=== PATIENT | female | born 2000 | race Caucasian/White ===

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

== ENCOUNTER → 2020-01-20 | Outpatient (CLI) | payer MEDICAID, SELFPAY ==
--- NOTE | 2020-01-20 | CON_PTH ---
PATIENT: DENIA SPARKS LOC: [facility] U#:[id number] AGE/SX: 19/F ROOM: RE01/20/[address]: Dr. Larry Gotti MD : 2000 BED: DIS: 01/20/2020 SPEC #: [id number] RECD: 01/20/20 15:10 STATUS: SWEETIE LINDA #: [id number] NEGRO: 01/20/20 00:[address]: Larry Gotti DEPT: SURGICAL PATHOLOGY RECD BY: Carine Cantu ENTERED: 01/21/20 08:28 SP TYPE: Conjunctiv OTHR DR: Dr. Jenelle Ruffin MD Tissues: Conjunctiva, NOS Procedures: Surgery Specimen Level III HEADER OPERATION: Removal of pyogenic granuloma of conjunctiva - OD PRE-OP DIAGNOSIS: Pyogenic granuloma of conjunctiva - OD TISSUE SUBMITTED: Pyogenic granuloma of conjunctiva - OD x2 MICROSCOPIC DIAGNOSIS Right eye lesion, biopsy: Marked chronic inflammation and mild acute inflammation. See comment. SJ:belkis 01/22/20 COMMENT Clinical correlation and appropriate follow up are necessary. Case has been reviewed in consultation with Dr. Gregory who concurs with the above diagnosis. IDC:AM MICROSCOPIC DESCRIPTION Slides are reviewed. GROSS DESCRIPTION Received in fixative is one container labeled with the patient's name and designated right eye lesion. The specimen consists of two irregular fragments of light lopez soft tissue that in aggregate measure 0.2 x 0.2 x 0.1 cm. The specimen is totally submitted in one cassette. / AM:belkis 01/21/20 TC:3 CPT: 38666
== END | disposition home or self-care (01) ==
LOC: LABSPEC 15:33
PROVIDERS: PCP Pediatrics; Visit Provider Ophthalmology
DX: L98.0 Pyogenic granuloma (principal)
CPT/HCPCS: 88304

== ENCOUNTER 2020-06-03 19:26 | Emergency (ER) | payer MEDICAID, SELFPAY ==
[2020-06-03 19:26] VITALS: BP 147/81; PULSE 86; RESP 16; TEMP 36.4; O2SAT 100; BMI 39.9
--- NOTE | 2020-06-03 20:40 | RAD_ITS ---
STUDY: X-RAY CHEST REASON FOR EXAM: Female, 20 years old. Fever TECHNIQUE: Single AP portable view of the chest. COMPARISON: None. FINDINGS: The lungs are clear and expanded. There is no demonstrated pleural abnormality. Normal size heart. Normal mediastinum and julio cesar. Normal visualized pulmonary arteries. Normal visualized aortic arch and descending thoracic aorta. Normal visualized thoracic spine. Normal visualized ribs, clavicles, and shoulders. There is no demonstrated abnormality of the visualized soft tissue structures of the upper abdomen. RAD/Chest 1 View (Portable) IMPRESSION: Normal x-ray examination of the chest. Electronically Signed: Catrachito Vera DO at 21:28 EDT Tel [phone], Service support ,
[2020-06-03 20:47] LABS: Absolute Lymphocyte Count 2.51 X10^3/uL (0.83-4.51); Absolute Neutrophil Count 7.9 X10^3/uL (2.0-7.7); Basophil# 0.06 X10^3/uL; Basophil% 0.5 % (0-1); Eosinophil# 0.75 X10^3/uL; Eosinophils% 6.2 % (0-5); Hematocrit 42.7 % (37-47); Hemoglobin 14.1 g/dL (12.0-15.0); Lymphocyte # 2.51 X10^3/ul (0.83-4.51); Lymphocyte % 20.7 % (19-41); Mean Corpuscular Hgb 29.8 pg (27.0-32.0); Mean Corpuscular Volume 90.3 fL (81-99); Mean Platelet Vol. 10.6 fl (6.2-12.0); Monocyte# 0.78 X10^3/uL; Monocyte% 6.4 % (0-10); NRBC Flagged by Analyzer 0 % (0-5); Neutrophil # 7.93 X10^3/uL (2.7-7.7); Neutrophil % 65.5 % (47-70); Platelet Count 419 K/mm3 (150-450); RBC Distribution Width CV 15.4 % (11.6-14.6); RBC Distribution Width SD 50.7 fl (35.1-43.9); Red Blood Count 4.73 M/mm3 (4.2-5.4); White Blood Count 12.1 K/mm3 (4.4-11.0)
[2020-06-03 20:50] LABS: Bacteria 0 SEEN /hpf (None Seen); Mucous, Urine 0 SEEN /hpf (<or=2+); Red Blood Cells-Urine 0 SEEN /hpf (0-5); White Blood Cells 0 SEEN /hpf (0-5)
[2020-06-03 20:51] LABS: Color, Urine Yellow (Yellow); Glucose, Dipstick Normal (Normal); Ketone-Dipstick Negative (Negative); Leukocyte Esterase-Dipstick Negative /ul (Negative); Nitrite-Dipstick Negative (Negative); Occult Blood-Urine Negative /ul (Negative); Protein-Dipstick Negative (Negative); Urine Bilirubin Dipstick Negative (Negative); Urine Clarity Clear (Clear); Urine Urobilinogen Normal (Normal)
[2020-06-03] MEDS: 0.9% Normal Saline 1,000 ML 1000 ML IV (20:54)
[2020-06-03] MEDS: Ondansetron 4 MG/2 ML Vial IV (20:54)
[2020-06-03 20:56] LABS: Internal QC Validated? YES +Cl - CLEAR BKGD; Pregnancy, Serum, hCG Quali. NEGATIVE Negative
[2020-06-03 21:01] LABS: Squamous Epithelial Cells - UA 0-5 SEEN /hpf (5-10)
[2020-06-03 21:05] LABS: AST(SGOT) 9 U/L (15-37); Alanine Aminotransfer ALT/SGPT 22 U/L (13-56); Albumin, Serum 3.7 g/dL (3.2-5.0); Alkaline Phosphatase 55 U/L (45-117); Anion Gap 4 (5-15); BUN 10 mg/dL (7-18); BUN/Creat Ratio 15.2 RATIO (10-20); Calcium,Total 8.9 mg/dL (8.5-10.1); Chloride 109 mmol/L (98-107); Creatinine, Serum 0.66 mg/dL (0.55-1.02); EST Glomerular Filtration Rate 122 mL/min (>60); Est Glom Filt Rate - Afr Amer 147 mL/min (>60); Estimated Creatinine Clearance 122.35 ml/min; Globulin 3.6 g/dL (2.2-4.2); Glucose 103 mg/dL (74-106); Lipase 86 U/L (73-393); Potassium 4.2 mmol/L (3.5-5.1); Protein, Total 7.3 g/dL (6.4-8.2); Sodium Level 139 mmol/L (136-145)
--- NOTE | 2020-06-03 21:52 | ED.VISSUMM ---
- ER Visit Summary Date of Service: 06/03/20 Chief Complaint: Nausea, vomiting, headache History of Present Illness: The patient is a 20 F who presents with nausea, vomiting, and headache for the past 3 days. Patient states the pain is throbbing. Patient states it is over the left frontal area. Patient states it has been constant. Patient admits to subjective chills but denies any fevers. Patient admits to some rhinorrhea. Patient also admits to some diarrhea. Patient denies any melena or hematochezia. Patient denies any hematemesis or coffee-ground emesis. Patient denies any visual changes. Patient denies any loss of taste or smell. Patient is concerned that she has COVID-19. Physical Examination: Vital signs are stable. Patient is afebrile. Patient is in no acute distress. Oral mucosa is pink and moist. Neck is supple. Trachea is midline. There is no JVD noted. Heart was regular rate and rhythm. Lungs are clear and equal bilaterally. Abdomen is soft. Bowel sounds are normal. There is no tenderness. There is no rebound or guarding noted. Skin is warm dry. Cranial nerves II through XII are intact. There are no focal motor or sensory deficits noted. Extremities are intact. There is no calf tenderness or edema. Test Results: CBC shows a slight leukocytosis of 12.1. Comprehensive metabolic profile was essentially within normal limits. Urinalysis does not show any evidence of urinary tract infection. Serum hCG was negative. COVID-19 rapid antigen was negative. Portable 1 view chest x-ray was obtained. On my interpretation, lung clark are clear. There is normal cardiac silhouette. Bony thorax is normal. There is no acute process noted. Radiologist also interpreted the x-ray and agrees. Emergency Department Course and Treatment: Patient was given IV fluids and Zofran. Patient was feeling better on reevaluation. Patient was instructed to drink plenty of fluids. Patient was instructed to take Tylenol or ibuprofen as needed for any pain or fevers. Patient was instructed to follow-up with her primary care physician in 5 to 7 days. Patient understood and was agreeable with the plan. All questions were answered. Disposition: Discharge home Impression: Viral illness This note was generated with [employer] dictation software. It may contain incorrect words, spelling, and punctuation that were not noted in review of the chart prior to signing ED Disposition - Plan for ED Patient: Disposition: Home or Assisted Living Diagnosis: Viral illness Instructions: ED Viral Syndrome (Adult) Referrals: Sarah Horta DO [Primary Care Provider] - 3-5 Days
== END 2020-06-03 22:17 | disposition home or self-care (01) ==
PROVIDERS: Emergency Provider Emergency Medicine; PCP Pediatrics
DX: B34.9 Viral infection, unspecified (principal); Z20.822 Contact with and (suspected) exposure to COVID-19; R11.2 Nausea with vomiting, unspecified; R19.7 Diarrhea, unspecified; R51.9 Headache, unspecified; J34.89 Other specified disorders of nose and nasal sinuses; F90.9 Attention-deficit hyperactivity disorder, unspecified type; Z72.0 Tobacco use; Z79.899 Other long term (current) drug therapy
CPT/HCPCS: 71045; 80053; 81001; 83690; 84703; 85025; 87426; 96361; 96374; 99283; J7030; J2405

== ENCOUNTER 2020-06-23 20:05 | Emergency (ER) | payer MEDICAID, SELFPAY ==
[2020-06-23 20:06] VITALS: BP 152/78; PULSE 78; RESP 18; TEMP 35.9; O2SAT 98; BMI 43.0
--- NOTE | 2020-06-23 20:48 | RAD_ITS ---
HISTORY: Cough EXAM: XR Chest 1 View: COMPARISON: June 03, 2020 FINDINGS: # of images incl. paperwork: 1 Lungs are clear. Heart is not enlarged. No acute osseous pathology perceived. Pulmonary vascularity is distinct. No effusions. RAD/Chest 1 View (Portable) IMPRESSION: Normal. at 2108 Reported and signed by: Wan Ross MD Electronically Signed: Wan Ross MD at 21:07 EDT Tel , Service support ,
[2020-06-23 21:08] LABS: Absolute Lymphocyte Count 3.27 X10^3/uL (0.83-4.51); Absolute Neutrophil Count 8.7 X10^3/uL (2.0-7.7); Basophil# 0.08 X10^3/uL; Basophil% 0.6 % (0-1); Eosinophil# 0.92 X10^3/uL; Eosinophils% 6.5 % (0-5); Hematocrit 40.6 % (37-47); Hemoglobin 13.2 g/dL (12.0-15.0); Lymphocyte # 3.27 X10^3/ul (0.83-4.51); Lymphocyte % 23.1 % (19-41); Mean Corp Hgb Conc 32.5 g/dL (32-36); Mean Corpuscular Hgb 28.5 pg (27.0-32.0); Mean Corpuscular Volume 87.7 fL (81-99); Mean Platelet Vol. 10.1 fl (6.2-12.0); Monocyte# 1.12 X10^3/uL; Monocyte% 7.9 % (0-10); NRBC Flagged by Analyzer 0 % (0-5); Neutrophil % 61.5 % (47-70); Platelet Count 329 K/mm3 (150-450); RBC Distribution Width CV 15.3 % (11.6-14.6); RBC Distribution Width SD 48.5 fl (35.1-43.9); Red Blood Count 4.63 M/mm3 (4.2-5.4); White Blood Count 14.2 K/mm3 (4.4-11.0)
[2020-06-23 21:17] LABS: International Normalized Ratio 1.1; Prothrombin Time (Protime)PT. 13.2 SECONDS (11.7-14.9)
[2020-06-23 21:18] LABS: Internal QC Validated? YES +Cl - CLEAR BKGD; Partial Thromboplast Time 29.5 Seconds (24.1-36.2); Pregnancy, Serum, hCG Quali. NEGATIVE Negative
[2020-06-23] MEDS: 0.9% Normal Saline 1,000 ML 1000 ML IV (21:23)
[2020-06-23 21:25] LABS: AST(SGOT) 9 U/L (15-37); Alanine Aminotransfer ALT/SGPT 27 U/L (13-56); Albumin, Serum 3.7 g/dL (3.2-5.0); Alkaline Phosphatase 54 U/L (45-117); Anion Gap 5 (5-15); BUN 13 mg/dL (7-18); BUN/Creat Ratio 19.4 RATIO (10-20); Calcium,Total 9.2 mg/dL (8.5-10.1); Chloride 107 mmol/L (98-107); Creatinine, Serum 0.67 mg/dL (0.55-1.02); EST Glomerular Filtration Rate 119 mL/min (>60); Est Glom Filt Rate - Afr Amer 144 mL/min (>60); Estimated Creatinine Clearance 120.52 ml/min; Globulin 3.6 g/dL (2.2-4.2); Glucose 96 mg/dL (74-106); Potassium 3.9 mmol/L (3.5-5.1); Protein, Total 7.3 g/dL (6.4-8.2); Sodium Level 138 mmol/L (136-145)
[2020-06-23 22:14] LABS: Bacteria 0 SEEN /hpf (None Seen); Mucous, Urine 0 SEEN /hpf (<or=2+); White Blood Cells 0 SEEN /hpf (0-5)
[2020-06-23 22:17] VITALS: BP 114/66; BP 116/59; BP 122/62; PULSE 69; PULSE 74; PULSE 84
[2020-06-23 22:19] LABS: Color, Urine Yellow (Yellow); Glucose, Dipstick Normal (Normal); Ketone-Dipstick Negative (Negative); Leukocyte Esterase-Dipstick Negative /ul (Negative); Nitrite-Dipstick Negative (Negative); Occult Blood-Urine 250 /ul (Negative); Protein-Dipstick Negative (Negative); Urine Bilirubin Dipstick Negative (Negative); Urine Clarity Clear (Clear); Urine Urobilinogen Normal (Normal)
[2020-06-23 22:26] LABS: Red Blood Cells-Urine 5-10 SEEN /hpf (0-5); Squamous Epithelial Cells - UA 0-5 SEEN /hpf (5-10)
--- NOTE | 2020-06-23 22:44 | EDS_ITS ---
HPI History of Present Illness Chief Complaint: General Illness Informant: patient Onset/Context/Timing Onset: Weeks (3) Context: Gradual Onset Quality: Cramping Location: Lower abdomen Worsened by: Nothing Relieved by: Nothing Associated Symptoms Associated Symptoms: Vaginal bleeding, fatigue, cough Narrative Narrative: Patient presents with nausea, vomiting, diarrhea, abdominal pain, and vaginal bleeding that has been getting worse over the past 3 weeks. Patient states she has cramping in her lower abdomen. Patient states that she was seen here approximately 2 to 3 weeks ago. Patient states she had a Covid test done at that time which was negative. Patient states she is having difficulty keeping food and liquids down. Patient also admits to heavy vaginal bleeding. Patient states she is going through a pad or tampon every hour. Patient admits to increasing fatigue. Patient denies any back pain. Patient denies any fevers or chills. Patient does admit to a cough with some green sputum. Patient also admits to rhinorrhea. [facility] Medical History Cancer Home Medications methylphenidate HCl 30 mg PO DAILY 10/25/16 [History Last Taken Unknown] ondansetron 4 mg PO Q8H PRN PRN #10 tab 06/23/20 [Rx Last Taken Unknown] sertraline [Zoloft] 25 mg PO DAILY 06/23/20 [History Last Taken Unknown] Allergy/AdvReac Type Severity Reaction Status Date / Time No Known Allergies Allergy Verified 06/03/20 19:29 Social History Smoking Status: Current every day smoker ROS [facility] ED Constitutional Constitutional ED: Denies chills or fever(s) Eyes Eyes: Denies blurry vision or change in vision ENT ENT ED: Reports rhinorrhea; Denies sore throat Cardiovascular Cardiovascular: Denies chest pain or palpitations Respiratory/Chest Respiratory/Chest: Reports cough and sputum; Denies dyspnea Gastrointestinal Gastrointestinal: Reports abdominal pain, diarrhea, nausea and vomiting Genitourinary Genitourinary ED: Denies dysuria or hematuria Musculoskeletal Musculoskeletal: Denies back pain or neck pain Integumentary Denies abscess or rash Neurologic Neurologic: Denies headache(s) or weakness Allergic/Immunologic Allergic/Immunologic ED: Denies mouth swelling or urticaria EXAM Physical Exam Const Vital Signs: 06/23/20 20:06 06/23/20 22:17 Temperature 96.7 F L Temperature Source Temporal Pulse Rate 78 Pulse Rate [Lying] 69 Pulse Rate [Sitting] 84 Pulse Rate [Standing] 74 Respiratory Rate 18 Blood Pressure 152/78 H Blood Pressure [Lying] 116/59 L Blood Pressure [Sitting] 122/62 H Blood Pressure [Standing] 114/66 Blood Pressure Mean 102 Blood Pressure Mean [Lying] 78 Blood Pressure Mean [Sitting] 82 Blood Pressure Mean [Standing] 82 Pulse Ox 98 Oxygen Delivery Method Room Air Positive well nourished, well developed and obese General Appearance ED: well developed Nutritional Appearance: obese HEENT Reports moist mucous membranes Neck supple and no JVD Resp normal respiratory effort and clear to auscultation bilaterally Cardio regular rate and regular rhythm GI normal to inspection, nondistended, normoactive bowel sounds Palpation: soft and tender LLQ, RLQ and suprapubic; Negative for guarding or rebound tenderness present Neuro oriented x3, CN's II-XII intact bilaterally and no sensory deficits noted Sensorium / Orientation: alert Motor Exam: strength 5/5 throughout Psych mental status grossly normal MDM MDM MDM Narrative Medical decision making narrative: Patient was given IV fluids. Orthostatic vital signs were obtained and were normal. CBC shows a slight leukocytosis of 14.2. Hemoglobin and hematocrit were normal. Platelets were normal. PT with INR and PTT were normal. Comprehensive metabolic profile was within normal limits. Serum hCG was negative. Urinalysis does not show any evidence of urinary tract infection. Portable 1 view chest x-ray was obtained. On my interpretation, lung clark are clear. There is normal cardiac silhouette. Bony thorax is normal. There is no acute process noted. Radiologist also interpreted the x-ray and agrees. COVID-19 rapid antigen was obtained and was negative. Patient was advised of her findings. Patient was given a prescription for Zofran. Patient was instructed to start with a liquid diet and advance to a bland diet and then to a regular diet as tolerated. Patient was instructed to follow-up with her primary care physician and PODIATRY DOCTOR for further evaluation. Patient understood and was agreeable with the plan. All questions were answered. Lab Data Attestation: I reviewed the patient's lab results. Labs: Laboratory Results - last 24 hr 06/23/20 06/23/20 06/23/20 21:00 21:00 21:00 WBC 14.2 H RBC 4.63 Hgb 13.2 Hct 40.6 MCV 87.7 MCH 28.5 MCHC 32.5 RDW Std Deviation 48.5 H RDW Coeff of Lexii 15.3 H Plt Count 329 MPV 10.1 Immature Gran % (Auto) 0.400 Neut % (Auto) 61.5 Lymph % (Auto) 23.1 [place] % (Auto) 7.9 Eos % (Auto) 6.5 H Baso % (Auto) 0.6 Absolute Neuts (auto) 8.7 H Absolute Lymphs (auto) 3.27 Nucleated RBC % 0 PT 13.2 INR 1.1 APTT 29.5 Sodium 138 Potassium 3.9 Chloride 107 Carbon Dioxide 26.0 Anion Gap 5 BUN 13 Creatinine 0.67 Estim Creat Clear Calc 120.52 Est GFR (MDRD) Af Amer 144 Est GFR (MDRD) Non-Af 119 BUN/Creatinine Ratio 19.4 Glucose 96 Calcium 9.2 Total Bilirubin 0.20 AST 9 L ALT 27 Alkaline Phosphatase 54 Total Protein 7.3 Albumin 3.7 Globulin 3.6 Albumin/Globulin Ratio 1.0 Serum , Qual Urine Color Urine Clarity Urine pH Ur Specific [place] Urine Protein Urine Glucose (UA) Urine Ketones Urine Occult Blood Urine Nitrite Urine Bilirubin Urine Urobilinogen Ur Leukocyte Esterase Urine RBC Urine WBC Ur Squamous Epith Cells Urine Bacteria Urine Mucus 06/23/20 06/23/20 21:00 22:09 WBC RBC Hgb Hct MCV MCH MCHC RDW Std Deviation RDW Coeff of Lexii Plt Count MPV Immature Gran % (Auto) Neut % (Auto) Lymph % (Auto) [place] % (Auto) Eos % (Auto) Baso % (Auto) Absolute Neuts (auto) Absolute Lymphs (auto) Nucleated RBC % PT INR APTT Sodium Potassium Chloride Carbon Dioxide Anion Gap BUN Creatinine Estim Creat Clear Calc Est GFR (MDRD) Af Amer Est GFR (MDRD) Non-Af BUN/Creatinine Ratio Glucose Calcium Total Bilirubin AST ALT Alkaline Phosphatase Total Protein Albumin Globulin Albumin/Globulin Ratio Serum , Qual NEGATIVE Urine Color Yellow Urine Clarity Clear Urine pH 7.0 Ur Specific [place] 1.010 Urine Protein Negative Urine Glucose (UA) Normal Urine Ketones Negative Urine Occult Blood 250 H Urine Nitrite Negative Urine Bilirubin Negative Urine Urobilinogen Normal Ur Leukocyte Esterase Negative Urine RBC 5-10 SEEN Urine WBC 0 SEEN Ur Squamous Epith Cells 0-5 SEEN Urine Bacteria 0 SEEN Urine Mucus 0 SEEN Radiography Chest X-Ray - ED: 1 View, Read by ED Physician, Read by Radiologist and Normal Diagnostic Testing: Radiology Impression Chest X-Ray 06/23/20 20:48 IMPRESSION: Normal. at 2108 Reported and signed by: Wan Ross MD Electronically Signed: Wan Ross MD at 21:07 EDT Tel , Service support , Discharge Plan Triage Chief Complaint: General Illness Other Complaint: Vag Bleeding ED Provider: Yefri Silva Dx/Rx/DC Orders Clinical Impression: Abdominal pain, Menorrhagia Prescriptions: New ondansetron [ondansetron] 4 MG tablet 4 mg PO Q8H PRN PRN (Reason: Nausea) Qty: 10 RF: 0 No Action methylphenidate HCl 40 MG capsule,ER biphasic 50-50 30 mg PO DAILY RF: 0 sertraline [Zoloft] 25 mg Tablet 25 mg PO DAILY RF: 0 Primary Care Provider: Sarah Horta Referrals: Sarah Horta DO [Primary Care Provider] - 3-5 Days Disposition Disposition: Home, self care
[2020-06-23 23:08] VITALS: BP 126/87; PULSE 88; RESP 14; O2SAT 98
== END 2020-06-23 23:08 | disposition home or self-care (01) ==
PROVIDERS: Emergency Provider Emergency Medicine; PCP Pediatrics
DX: N92.0 Excessive and frequent menstruation with regular cycle (principal); R11.2 Nausea with vomiting, unspecified; R19.7 Diarrhea, unspecified; R05 Cough; J34.89 Other specified disorders of nose and nasal sinuses; E66.9 Obesity, unspecified; F17.200 Nicotine dependence, unspecified, uncomplicated; Z79.899 Other long term (current) drug therapy
CPT/HCPCS: 71045; 80053; 81001; 84703; 85025; 85610; 85730; 87426; 96360; 96361; 99284; J7030

== ENCOUNTER 2020-09-01 17:07 | Emergency (ER) | payer MEDICAID, SELFPAY ==
[2020-09-01 17:07] VITALS: BP 137/78; PULSE 93; RESP 14; TEMP 36.3; O2SAT 98; BMI 42.5
[2020-09-01 17:11] VITALS: BP 137/78; PULSE 93; RESP 14; TEMP 36.3; O2SAT 98
--- NOTE | 2020-09-01 17:29 | EDS_ITS ---
HPI HPI - Female History of Present Illness Chief Complaint: Complaint Informant: patient Narrative Narrative: Patient is a 20-year-old female who presents to the emergency department for oral exposure to gonorrhea. She denies vaginal intercourse with the person who called her and said he was positive. Patient also recently found out she was . She states she is 4 weeks late on her menstrual period. She took 5 different home test and they have all been positive. This is her first . She denies any abdominal pain or vaginal bleeding/discharge. No urinary symptoms. She denies any throat symptoms. No fevers or chills or nausea/vomiting. She does not have an LIFE SKILLS COORDINATOR VOLUNTEER at this time. She is a former smoker and quit whenever she found out she was . She has started taking vitamins. PFSH [facility] Medical History Cancer Home Medications methylphenidate HCl 30 mg PO DAILY 10/25/16 [History Last Taken Unknown] ondansetron 4 mg PO Q8H PRN PRN #10 tab 06/23/20 [Rx Last Taken Unknown] sertraline [Zoloft] 25 mg PO DAILY 06/23/20 [History Last Taken Unknown] cephalexin 500 mg PO BID 7 Days #14 cap 09/01/20 [Rx Last Taken Unknown] Allergy/AdvReac Type Severity Reaction Status Date / Time No Known Allergies Allergy Verified 06/03/20 19:29 Social History Smoking Status: Current every day smoker tobacco type: cigarettes ROS ROS ED Constitutional Constitutional ED: Denies chills or fever(s) Eyes Eyes: Denies change in vision ENT ENT ED: Denies epistaxis or rhinorrhea Cardiovascular Cardiovascular: Denies chest pain or palpitations Respiratory/Chest Respiratory/Chest: Denies cough, dyspnea or dyspnea on exertion Gastrointestinal Gastrointestinal: Denies abdominal pain, diarrhea, nausea or vomiting Genitourinary Genitourinary ED: Denies dysuria, hematuria or urinary frequency Musculoskeletal Musculoskeletal: Denies back pain or neck pain Integumentary Denies rash Neurologic Neurologic: Denies dizziness, headache(s) or weakness EXAM Physical Exam Const Vital Signs: 09/01/20 17:07 09/01/20 17:11 Temperature 97.4 F L 97.4 F L Temperature Source Temporal Temporal Pulse Rate 93 93 Respiratory Rate 14 14 Blood Pressure 137/78 H 137/78 H Blood Pressure Mean 97 97 Pulse Ox 98 98 Oxygen Delivery Method Room Air Room Air Positive well nourished and well developed General Appearance ED: well developed and NAD HEENT Reports normocephalic, head/scalp atraumatic and moist mucous membranes Eyes PERRL and EOMs intact bilaterally Neck supple Chest Wall inspection of chest normal Resp normal respiratory effort and clear to auscultation bilaterally Auscultation: Negative for rales, rhonchi or wheezes Cardio regular rate, regular rhythm and no murmurs GI normal to inspection, nondistended, normoactive bowel sounds and non-tender Palpation: soft; Negative for guarding or rebound tenderness present Extremity normal to inspection General Extremety ED: Negative for edema or tenderness General Extremity: Negative for edema Neuro no sensory deficits noted Sensorium / Orientation: alert Motor Exam: strength 5/5 throughout Psych mental status grossly normal Skin no rashes or lesions noted MDM MDM MDM Narrative Medical decision making narrative: Patient presents to the ED with oral exposure to gonorrhea. We will do a PCR test. Since she is we will hold off on treating her a symptomatically. We will give her a referral for LIFE SKILLS COORDINATOR VOLUNTEER as she has not had a evaluation. She otherwise is in no acute distress and has a benign exam. Vital signs within normal limits. Gonorrhea and Chlamydia are currently pending. Urine test was positive. Urine bacteria is present without any pyuria. We will treat this with Keflex given the status. She is given referral for LIFE SKILLS COORDINATOR VOLUNTEER. Return precautions are reviewed with her. She understands and is agreeable to plan. All questions were answered. Lab Data Labs: Laboratory Results - last 24 hr 09/01/20 17:25 Urine Color Yellow Urine Clarity Clear Urine pH 7.0 Ur Specific [place] 1.005 Urine Protein Negative Urine Glucose (UA) Normal Urine Ketones Negative Urine Occult Blood Negative Urine Nitrite Negative Urine Bilirubin Negative Urine Urobilinogen Normal Ur Leukocyte Esterase Negative Urine RBC 0 SEEN Urine WBC 0 SEEN Ur Squamous Epith Cells 0-5 SEEN Urine Bacteria 2+ Urine Mucus 0 SEEN Urine Test Positive H Discharge Plan Triage Chief Complaint: Complaint ED Provider: Theodore Tenorio Dx/Rx/DC Orders Clinical Impression: Exposure to STD Instructions: ED , New Dx, ED Testing for Suspected STI Prescriptions: New cephalexin 500 mg capsule 500 mg PO BID 7 Days Qty: 14 RF: 0 No Action methylphenidate HCl 40 MG capsule,ER biphasic 50-50 30 mg PO DAILY RF: 0 sertraline [Zoloft] 25 mg Tablet 25 mg PO DAILY RF: 0 ondansetron [ondansetron] 4 MG tablet 4 mg PO Q8H PRN PRN (Reason: Nausea) Qty: 10 RF: 0 Primary Care Provider: Sarah Horta Referrals: Sarah Horta DO [Primary Care Provider] - Lora Stanley MD [STAFF PHYSICIAN] - 3-5 Days Disposition Disposition: Home, Self Care Discharge Date/Time: 09/01/20 18:55
[2020-09-01 17:31] LABS: Mucous, Urine 0 SEEN /hpf (<or=2+); Red Blood Cells-Urine 0 SEEN /hpf (0-5); White Blood Cells 0 SEEN /hpf (0-5)
[2020-09-01 17:34] LABS: Internal QC Validated? YES +Cl - CLEAR BKGD; Pregnancy, Urine Positive Negative
[2020-09-01 17:35] LABS: Color, Urine Yellow (Yellow); Glucose, Dipstick Normal (Normal); Ketone-Dipstick Negative (Negative); Leukocyte Esterase-Dipstick Negative /ul (Negative); Nitrite-Dipstick Negative (Negative); Occult Blood-Urine Negative /ul (Negative); Protein-Dipstick Negative (Negative); Specific Gravity, Urine 1.005 (1.002-1.030); Urine Bilirubin Dipstick Negative (Negative); Urine Clarity Clear (Clear); Urine Urobilinogen Normal (Normal)
[2020-09-01 17:49] LABS: Bacteria 2+ /hpf (None Seen); Squamous Epithelial Cells - UA 0-5 SEEN /hpf (5-10)
[2020-09-06 05:06] LABS: Chlamydia By Nucleic Acid AMP Negative (Negative)
[2020-09-06 12:38] LABS: Gonococcus By Nucleic Acid AMP Negative (Negative)
== END 2020-09-01 18:55 | disposition home or self-care (01) ==
PROVIDERS: Emergency Provider Emergency Medicine; PCP Pediatrics
DX: O26.891 Other specified pregnancy related conditions, first trimester (principal); Z20.2 Contact with and (suspected) exposure to infections with a predominantly sexual mode of transmission; R82.71 Bacteriuria; Z87.891 Personal history of nicotine dependence; Z3A.00 Weeks of gestation of pregnancy not specified
CPT/HCPCS: 81001; 81025; 87491; 87591; 99282

== ENCOUNTER → 2020-10-15 | Outpatient (CLI) | payer MEDICAID, SELFPAY ==
[2020-10-15 17:05] LABS: Absolute Lymphocyte Count 2.09 X10^3/uL (0.83-4.51); Absolute Neutrophil Count 12.3 X10^3/uL (2.0-7.7); Basophil# 0.05 X10^3/uL; Basophil% 0.3 % (0-1); Eosinophils% 1.9 % (0-5); Hematocrit 38.7 % (37-47); Hemoglobin 13.2 g/dL (12.0-15.0); Lymphocyte # 2.09 X10^3/ul (0.83-4.51); Lymphocyte % 13.2 % (19-41); Mean Corp Hgb Conc 34.1 g/dL (32-36); Mean Corpuscular Hgb 29.2 pg (27.0-32.0); Mean Corpuscular Volume 85.6 fL (81-99); Mean Platelet Vol. 11.2 fl (6.2-12.0); Monocyte# 1.07 X10^3/uL; Monocyte% 6.8 % (0-10); NRBC Flagged by Analyzer 0 % (0-5); Neutrophil # 12.26 X10^3/uL (2.7-7.7); Neutrophil % 77.5 % (47-70); Platelet Count 280 K/mm3 (150-450); RBC Distribution Width CV 15.9 % (11.6-14.6); RBC Distribution Width SD 49.5 fl (35.1-43.9); Red Blood Count 4.52 M/mm3 (4.2-5.4); White Blood Count 15.8 K/mm3 (4.4-11.0)
[2020-10-15 17:26] LABS: Thyroid Stim Hormone (TSH) 0.85 uIU/mL (0.358-3.74)
[2020-10-15 17:44] LABS: Color, Urine Yellow (Yellow); Glucose, Dipstick Normal (Normal); Ketone-Dipstick 50 mg/dl (Negative); Leukocyte Esterase-Dipstick Negative /ul (Negative); Nitrite-Dipstick Negative (Negative); Occult Blood-Urine Negative /ul (Negative); Protein-Dipstick Negative (Negative); Specific Gravity, Urine 1.005 (1.002-1.030); Urine Bilirubin Dipstick Negative (Negative); Urine Clarity Clear (Clear); Urine Urobilinogen Normal (Normal)
[2020-10-15 18:11] LABS: Amphetamine Urine VISTA NEGATIVE (<1000 ng/mL); Barbiturate Urine VISTA NEGATIVE (< 200 ng/mL); Benzodiazepine Urine VISTA NEGATIVE (< 200 ng/mL); Cocaine Urine VISTA NEGATIVE (< 300 ng/mL); Ecstacy Urine VISTA NEGATIVE (< 500 ng/mL); Methadone Urine VISTA NEGATIVE (< 300 ng/mL); PCP Urine VISTA NEGATIVE (< 25 ng/mL); THC Urine VISTA NEGATIVE (< 50 ng/mL); Vista UDS pH Range 5
[2020-10-16 09:38] LABS: HIV - WCH Non-Reactive (Nonreactive); Hepatitis B Surface Antigen Non-Reactive (Nonreactive); Hepatitis C Antibody Non-Reactive (Nonreactive); Rubella IgG Reactive (Nonreactive); Syphilis Antibodies Non-reactive
[2020-10-19 03:07] LABS: Chlamydia By Nucleic Acid AMP Negative (Negative)
[2020-10-19 21:57] LABS: Gonococcus By Nucleic Acid AMP Negative (Negative)
== END | disposition home or self-care (01) ==
LOC: LABSPEC 14:52
PROVIDERS: PCP Pediatrics; Visit Provider Obstetrics & Gynecology
DX: Z34.81 Encounter for supervision of other normal pregnancy, first trimester (principal); Z11.3 Encounter for screening for infections with a predominantly sexual mode of transmission
CPT/HCPCS: 36415; 80307; 81002; 84443; 85025; 86703; 86762; 86780; 86803; 87086; 87088; 87340; 87491; 87591

== ENCOUNTER → 2020-11-18 11:01 | Outpatient (CLI) | payer MEDICAID, SELFPAY | PROVIDERS: PCP Pediatrics; Visit Provider Obstetrics & Gynecology | DX: O23.42 Unspecified infection of urinary tract in pregnancy, second trimester (principal); Z3A.00 Weeks of gestation of pregnancy not specified | CPT/HCPCS: 36415; 87086; 87088; 87186 ==

== ENCOUNTER 2020-12-17 23:47 | Outpatient (CLI) | payer MEDICAID, SELFPAY ==
[2020-12-17 23:54] VITALS: BMI 40.1
[2020-12-18] VITALS (8 sets, daily range): BP systolic 122; BP diastolic 62; PULSE 73–90; O2SAT 91–98
[2020-12-18 00:53] LABS: ROM Internal Control Test YES-OK TO RESULT pt. (Internal QC); ROM Patient Test Negative (Negative)
[2020-12-18 00:54] LABS: Color, Urine Yellow (Yellow); Glucose, Dipstick Normal (Normal); Ketone-Dipstick Negative (Negative); Leukocyte Esterase-Dipstick Negative /ul (Negative); Nitrite-Dipstick Negative (Negative); Occult Blood-Urine Negative /ul (Negative); Protein-Dipstick Negative (Negative); Urine Bilirubin Dipstick Negative (Negative); Urine Clarity Clear (Clear); Urine Urobilinogen Normal (Normal); Urine pH 6.5 (5.0 - 8.0)
--- NOTE | 2020-12-18 08:31 | OB.TRI.NOTE ---
HPI - General HPI Narrative Leakage of fluidSKAYLA SPARKS, is a 20 F who presents PFSH PFS Medical History Cancer Home Medications ondansetron 4 mg PO Q8H PRN PRN #10 tab 06/23/20 [Rx Last Taken 12/16/20] Allergy/AdvReac Type Severity Reaction Status Date / Time No Known Allergies Allergy Verified 12/17/20 23:59 Social History Smoking Status: Current every day smoker tobacco type: cigarettes NST FHR Rate Baby A Baseline: 150 Uterine Activity:: quiet Assessment & Plan (1) : PLAN: Patient arrives with leakage of fluid, ROM negative. heart tones reassuring. No signs of ruptured membranes. Okay to discharge home and follow-up at scheduled appointments
== END 2020-12-18 02:00 | disposition home or self-care (01) ==
LOC: WPOUT 23:51 → WP 23:51
PROVIDERS: PCP Pediatrics; Visit Provider Obstetrics & Gynecology
DX: O26.899 Other specified pregnancy related conditions, unspecified trimester (principal); O99.330 Smoking (tobacco) complicating pregnancy, unspecified trimester; F17.210 Nicotine dependence, cigarettes, uncomplicated; Z3A.00 Weeks of gestation of pregnancy not specified
CPT/HCPCS: 59025; 59050; 81002; 84112; 99218; G0378

== ENCOUNTER 2021-01-22 18:35 | Outpatient (CLI) | payer MEDICAID, SELFPAY ==
[2021-01-22 18:58] VITALS: BP 117/63; PULSE 95
[2021-01-22 20:10] VITALS: BMI 43.4
--- NOTE | 2021-01-22 21:34 | PCM.PN.BLA ---
Progress Note G1 at 26 weeks presenting with decreased movement. States that she felt movement earlier in the day but it was less than usual. heart tracing reassuring. NST REACTIVE. FHR 145/mod jaquelin/+accel/no decel, toco quiet. BSUS completed showing adequate fluid subjectively, transverse lie with many movements of limbs and body. Patient and her mother reassured, all questions answered. Discussed FM in second trimester and kick counts. Discussed when to call or come to be evaluated. F/u 01/26 at routinely scheduled apt.
== END 2021-01-22 21:40 | disposition home or self-care (01) ==
LOC: WPOUT 18:44 → WP 18:45
PROVIDERS: PCP Pediatrics; Visit Provider Student in an Organized Health Care Education/Training Program
DX: O36.8120 Decreased fetal movements, second trimester, not applicable or unspecified (principal); Z3A.26 26 weeks gestation of pregnancy
CPT/HCPCS: 59050; 76815; 99218; G0378

== ENCOUNTER 2021-02-24 10:13 | Outpatient (CLI) | payer MEDICAID, SELFPAY ==
[2021-02-24 11:46] LABS: Hematocrit 34.6 % (37-47); Hemoglobin 11.6 g/dL (12.0-15.0); Mean Corp Hgb Conc 33.5 g/dL (32-36); Mean Corpuscular Hgb 29.3 pg (27.0-32.0); Mean Corpuscular Volume 87.4 fL (81-99); Mean Platelet Vol. 11.3 fl (6.2-12.0); Platelet Count 295 K/mm3 (150-450); RBC Distribution Width CV 15.6 % (11.6-14.6); RBC Distribution Width SD 49.8 fl (35.1-43.9); Red Blood Count 3.96 M/mm3 (4.2-5.4); White Blood Count 17.5 K/mm3 (4.4-11.0)
[2021-02-24 11:52] LABS: Glucose Challenge Gest 1H 50g 390 mg/dL (70-140)
== END 2021-02-24 23:59 | disposition short-term general hospital (02) ==
LOC: WOBLAB 10:15
PROVIDERS: PCP Pediatrics; Visit Provider Obstetrics & Gynecology
DX: Z34.80 Encounter for supervision of other normal pregnancy, unspecified trimester (principal)
CPT/HCPCS: 36415; 82950; 85027

== ENCOUNTER 2021-03-02 12:18 | Outpatient (CLI) | payer MEDICAID, SELFPAY ==
[2021-03-02 13:37] LABS: Hemoglobin A1c 6.8 % (3.8-5.6)
== END 2021-03-02 23:59 | disposition short-term general hospital (02) ==
LOC: WOBLAB 12:20
PROVIDERS: PCP Pediatrics; Visit Provider Obstetrics & Gynecology
DX: O24.419 Gestational diabetes mellitus in pregnancy, unspecified control (principal); Z3A.00 Weeks of gestation of pregnancy not specified
CPT/HCPCS: 36415; 83036

== ENCOUNTER 2021-03-14 18:20 | Outpatient (CLI) | payer MEDICAID, SELFPAY ==
[2021-03-14 18:42] VITALS: BP 131/73; PULSE 98
--- NOTE | 2021-03-14 19:16 | PCM.PN.BLA ---
Progress Note HPI: 20-year-old G1, P0 at 33/2 weeks, JUDY 04/30/2021 by 11-week ultrasound, presenting to labor and delivery for blood glucose control. Patient was seen by PA at [facility] posterior office this morning, was sent with instructions to go to [facility] labor and delivery for inpatient glucose monitoring by maternal- medicine. Patient presented this evening to [place] labor and delivery tonight. Denies headache, vision changes, chest pain or shortness of breath, nausea or vomiting, fevers or chills, diarrhea or constipation. Reports movement, states that it has been decreased since starting insulin. Denies contractions, leaking of fluid, vaginal bleeding. complicated by: Class III obesity, tobacco abuse, asthma on no medications, bipolar disorder with depression and history of cutting, diabetes. Medical history: 1. Obesity 2. History of retinoblastoma 3. Tobacco abuse 4. Asthma without medications 5. History of cutting and depression on Zoloft. Bipolar disorder. 6. Diabetes Surgical history: 1. Removal of right eye 2. Tonsillectomy and adenoidectomy Medications: 1. Colace 2. NovoLog. 20 units subcu with breakfast and 16 units with dinner 3. Humulin. 40 units in a.m. and 16 units in p.m. subcu. Family history: Noncontributory Social: Reports tobacco use, prior marijuana use, denies alcohol use Review of systems negative otherwise stated above Physical exam: Vital signs:Blood pressure 131/73, pulse 98 General: Patient is no acute distress, comfortable HEENT: Normocephalic atraumatic Cardiorespiratory: No increased effort, heart rate regular Abdomen: Soft, nontender, gravid, obese Extremities: Minimal edema Neurologic: Cranial nerves II through XII grossly intact, patellar reflexes 2/4 bilaterally, no clonus Musculoskeletal: Range of movement and strength 5/5 throughout all extremities heart rate: 145/mod jaquelin/+accel/no decel Naomi: quiet Assessment/plan 20-year-old G1 at 33/2 weeks presenting for preeclampsia evaluation and blood sugar management. Patient was intended to be evaluated at [facility] today per [facility] PA. Was unable to get a ride to [facility]. 1.Diabetes. -Fasting blood sugars ranging from 1 20-1 50. 2-hour postprandial in the 200s on average. Patient states that blood sugars have been around this level for several weeks. -Will increase NovoLog to 25 units with breakfast and 20 units with dinner, increase Humulin to 45 units in a.m. and 20 units in p.m. Will likely plan follow-up with [facility] based on evaluation tonight. -Patient started on insulin 03/08/21. 2. Hypertension -CBC, CMP, LDH, urine protein/creatinine ration being sent 3. [facility] No need at this time for transport by ambulance to [facility]. Will evaluate labs and increase home insulin regimen. Will plan to contact [facility]FM in AM for further discussion as long as labs are wnl and BPs are stable.
[2021-03-14 19:30] LABS: Mucous, Urine 0 SEEN /hpf (<or=2+); Red Blood Cells-Urine 0 SEEN /hpf (0-5)
[2021-03-14 19:32] VITALS: TEMP 36.5
[2021-03-14 19:33] LABS: Hemoglobin 10.6 g/dL (12.0-15.0); Mean Corp Hgb Conc 34.2 g/dL (32-36); Mean Corpuscular Volume 84.7 fL (81-99); Mean Platelet Vol. 10.2 fl (6.2-12.0); Platelet Count 270 K/mm3 (150-450); RBC Distribution Width CV 15.6 % (11.6-14.6); RBC Distribution Width SD 46.7 fl (35.1-43.9); Red Blood Count 3.66 M/mm3 (4.2-5.4); White Blood Count 13.1 K/mm3 (4.4-11.0)
[2021-03-14 19:34] VITALS: BMI 47.7
[2021-03-14 19:42] VITALS: BP 127/56; PULSE 82
[2021-03-14 19:57] LABS: Color, Urine Yellow (Yellow); Glucose, Dipstick Normal (Normal); Ketone-Dipstick Negative (Negative); Leukocyte Esterase-Dipstick 25 /ul (Negative); Nitrite-Dipstick Positive (Negative); Occult Blood-Urine 10 /ul (Negative); Protein-Dipstick 15 mg/dl (Negative); Specific Gravity, Urine 1.015 (1.002-1.030); Urine Bilirubin Dipstick Negative (Negative); Urine Clarity Sl. Cloudy (Clear); Urine Urobilinogen Normal (Normal)
[2021-03-14 20:10] LABS: Bacteria 3+ /hpf (None Seen); Squamous Epithelial Cells - UA 5-10 SEEN /hpf (5-10); White Blood Cells 0-5 SEEN /hpf (0-5)
[2021-03-14 20:12] LABS: ALB/GLOB Ratio 0.6 RATIO (0.9-2.4); AST(SGOT) 10 U/L (15-37); Alanine Aminotransfer ALT/SGPT 18 U/L (13-56); Albumin, Serum 2.2 g/dL (3.2-5.0); Alkaline Phosphatase 91 U/L (45-117); Anion Gap 8 (5-15); BUN 4 mg/dL (7-18); BUN/Creat Ratio 8.8 RATIO (10-20); Calcium,Total 8.5 mg/dL (8.5-10.1); Chloride 110 mmol/L (98-107); Creatinine, Serum 0.46 mg/dL (0.55-1.02); EST Glomerular Filtration Rate 184 mL/min (>60); Est Glom Filt Rate - Afr Amer 223 mL/min (>60); Estimated Creatinine Clearance 175.54 ml/min; Globulin 3.7 g/dL (2.2-4.2); Glucose 132 mg/dL (74-106); Potassium 3.5 mmol/L (3.5-5.1); Protein, Total 5.9 g/dL (6.4-8.2); Sodium Level 140 mmol/L (136-145)
[2021-03-14 20:14] LABS: Protein, Urine (Random) 16.9 mg/dL (<11.9); Protein:Creat Ratio 204 mg/g CRE (0-200)
[2021-03-14 20:27] LABS: LDH 156 U/L (84-246)
== END 2021-03-14 23:59 | disposition home or self-care (01) ==
LOC: WPOUT 18:24 → WP 18:25
PROVIDERS: PCP Pediatrics; Visit Provider Student in an Organized Health Care Education/Training Program
DX: O24.113 Pre-existing type 2 diabetes mellitus, in pregnancy, third trimester (principal); F31.9 Bipolar disorder, unspecified; Z79.4 Long term (current) use of insulin; O16.3 Unspecified maternal hypertension, third trimester; O99.340 Other mental disorders complicating pregnancy, unspecified trimester; O99.213 Obesity complicating pregnancy, third trimester; E66.9 Obesity, unspecified; O99.333 Smoking (tobacco) complicating pregnancy, third trimester; F17.200 Nicotine dependence, unspecified, uncomplicated; Z3A.33 33 weeks gestation of pregnancy
CPT/HCPCS: 36415; 59025; 59050; 76815; 80053; 81001; 82570; 83615; 84156; 85027; 87426; 99218; G0378

== ENCOUNTER 2021-04-02 20:45 | Outpatient (CLI) | payer MEDICAID, SELFPAY ==
[2021-04-02 20:50] VITALS: BMI 46.4
[2021-04-02 20:58] VITALS: PULSE 100; O2SAT 98
[2021-04-02 21:01] VITALS: BP 121/63; PULSE 93
[2021-04-02 21:17] VITALS: BP 121/63; PULSE 96; TEMP 36.2; O2SAT 98
[2021-04-02 21:26] LABS: Bedside Glucose 227 mg/dL (70-110)
[2021-04-02 22:00] VITALS: TEMP 36.5; O2SAT 98
[2021-04-02] MEDS: 0.9% Saline Lock 10 ML Syringe IV (22:00)
[2021-04-02 22:01] VITALS: BP 131/62; PULSE 87; TEMP 36.5
[2021-04-02 22:20] LABS: Absolute Lymphocyte Count 2.28 X10^3/uL (0.83-4.51); Absolute Neutrophil Count 12.2 X10^3/uL (2.0-7.7); Basophil# 0.02 X10^3/uL; Basophil% 0.1 % (0-1); Eosinophil# 0.61 X10^3/uL; Eosinophils% 3.7 % (0-5); Hematocrit 34.9 % (37-47); Hemoglobin 11.9 g/dL (12.0-15.0); Lymphocyte # 2.28 X10^3/ul (0.83-4.51); Mean Corp Hgb Conc 34.1 g/dL (32-36); Mean Corpuscular Hgb 29.6 pg (27.0-32.0); Mean Corpuscular Volume 86.8 fL (81-99); Mean Platelet Vol. 10.7 fl (6.2-12.0); Monocyte# 1.04 X10^3/uL; Monocyte% 6.4 % (0-10); NRBC Flagged by Analyzer 0 % (0-5); Neutrophil # 12.18 X10^3/uL (2.7-7.7); Neutrophil % 74.8 % (47-70); Platelet Count 318 K/mm3 (150-450); RBC Distribution Width CV 16.6 % (11.6-14.6); RBC Distribution Width SD 51.1 fl (35.1-43.9); Red Blood Count 4.02 M/mm3 (4.2-5.4); White Blood Count 16.3 K/mm3 (4.4-11.0)
[2021-04-02] MEDS: Dext 5%-0.45% NS 1,000 ML 125 ML IV (22:23)
[2021-04-02] MEDS: Insulin NPH Human 100 UNITS/ML PEN 40 UNITS SC (22:25)
[2021-04-02 22:36] LABS: Bacteria 0 SEEN /hpf (None Seen); Mucous, Urine 0 SEEN /hpf (<or=2+)
[2021-04-02 22:37] LABS: ALB/GLOB Ratio 0.6 RATIO (0.9-2.4); AST(SGOT) 8 U/L (15-37); Alanine Aminotransfer ALT/SGPT 15 U/L (13-56); Albumin, Serum 2.3 g/dL (3.2-5.0); Alkaline Phosphatase 129 U/L (45-117); Anion Gap 7 (5-15); BUN 6 mg/dL (7-18); BUN/Creat Ratio 10.6 RATIO (10-20); Calcium,Total 8.8 mg/dL (8.5-10.1); Chloride 111 mmol/L (98-107); Creatinine, Serum 0.56 mg/dL (0.55-1.02); EST Glomerular Filtration Rate 144 mL/min (>60); Est Glom Filt Rate - Afr Amer 174 mL/min (>60); Estimated Creatinine Clearance 142.99 ml/min; Globulin 4.1 g/dL (2.2-4.2); Glucose 215 mg/dL (74-106); Potassium 3.7 mmol/L (3.5-5.1); Protein, Total 6.4 g/dL (6.4-8.2); Sodium Level 138 mmol/L (136-145)
[2021-04-02 22:43] LABS: Color, Urine Yellow (Yellow); Glucose, Dipstick 1000 mg/dl (Normal); Ketone-Dipstick Negative (Negative); Leukocyte Esterase-Dipstick Negative /ul (Negative); Nitrite-Dipstick Negative (Negative); Occult Blood-Urine Negative /ul (Negative); Protein-Dipstick 15 mg/dl (Negative); Urine Bilirubin Dipstick Negative (Negative); Urine Clarity Sl. Cloudy (Clear); Urine Urobilinogen Normal (Normal)
[2021-04-02 22:45] LABS: Red Blood Cells-Urine 0-5 SEEN /hpf (0-5); Squamous Epithelial Cells - UA 25-50 SEEN /hpf (5-10); White Blood Cells 0-5 SEEN /hpf (0-5)
[2021-04-02 22:46] LABS: Amorphous Sediment 1+ URATE
[2021-04-02] MEDS: Lactated Ringers 500 ML 999 ML IV (23:08)
[2021-04-02 23:35] LABS: Bedside Glucose 159 mg/dL (70-110)
[2021-04-02 23:58] LABS: ROM Internal Control Test YES-OK TO RESULT pt. (Internal QC); ROM Patient Test Negative (Negative)
[2021-04-03] VITALS (8 sets, daily range): BP systolic 97–130; BP diastolic 55–77; PULSE 72–89; TEMP 36.2–36.7; O2SAT 81–100
[2021-04-03] MEDS: Acetaminophen 500 MG Tablet 1000 MG PO (01:20)
[2021-04-03 01:46] LABS: Bedside Glucose 221 mg/dL (70-110)
[2021-04-03 03:21] LABS: Bedside Glucose 148 mg/dL (70-110)
[2021-04-03 05:16] LABS: Bedside Glucose 123 mg/dL (70-110)
[2021-04-03] MEDS: Dext 5%-0.45% NS 1,000 ML 125 ML IV (06:12)
[2021-04-03 07:40] LABS: Bedside Glucose 119 mg/dL (70-110)
[2021-04-03 09:31] LABS: Bedside Glucose 135 mg/dL (70-110)
--- NOTE | 2021-04-03 10:46 | PCM.HP.BLA ---
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 prediction, may occur due to placental, maternal, or mosaicism or neoplasm; vanishing twin; prior maternal organ transplant; or other causes. Sex chromosomal aneuploidies are not reportable for known multiple gestations. These tests are screening tests and not diagnostic; they do not replace the accuracy and precision of diagnosis with CVS or amniocentesis. A patient with a positive test result should be referred for genetic counseling and offered invasive diagnosis for confirmation of test results.[5] A negative result does not ensure an unaffected nor does it exclude the possibility of other chromosomal abnormalities or defects which are not a part of these tests. An uninformative result may be reported, the causes of which may include, but are not limited to, insufficient sequencing coverage, noise or artifacts in the region, amplification or sequencing bias, or insufficient fraction. These tests are not intended to identify pregnancies at risk for neural tube defects or ventral wall defects. Testing for whole chromosome abnormalities (including sex chromosomes) and for subchromosomal abnormalities could lead to the potential discovery of both and maternal genomic abnormalities that could have major, minor, or no, clinical significance. Evaluating the significance of a positive or a non-reportable result may involve both invasive testing and additional studies on the mother. Such investigations may lead to a diagnosis of maternal chromosomal or subchromosomal abnormalities, which on occasion may be associated with benign or malignant maternal neoplasms. These tests may not accurately identify triploidy, balanced rearrangements, or the precise location of subchromosomal duplications or deletions; these may be detected by diagnosis with CVS or amniocentesis. The ability to report results may be impacted by maternal BMI, maternal weight, maternal systemic lupus erythematosus (SLE) and/or by certain pharmaceutical agents such as low molecular weight heparin (for example: Lovenox(R), Xaparin(R), Clexane(R) and Fragmin(R)). The results of this testing, including the benefits and limitations, should be discussed with a qualified healthcare provider. management decisions, including termination of the , should not be based on the results of these tests alone. The healthcare provider is responsible for the use of this information in the management of their patient. [id number] PLUS NOTE LC_SEQCA This test was developed and its performance characteristics determined by [employer]. It has not been cleared or approved by the Food and Drug Administration. This laboratory is certified under the Clinical Laboratory Improvement Amendments (CLIA) as qualified to perform high complexity clinical laboratory testing and accredited by the [employer] [place] (CAP). If there is future clinical need for adding MaterniT GENOME testing, this specimen will be available until term. [facility] samples will not be retained beyond 60 days. [facility] patients will have to send a new sample for re-sequencing ([facility] Test Code: [id number]). [id number] PLUS REFERENCES LC_SEQCA 1. Jeff CARRILLO, et al. Priyanka Med. 2012;14(3):296-305. 2. Taco STALEY et al. Prenat Diag. 2013;33(6):591-597. 3. Pool C, et al. Clin Chem. 2015 Apr;61(4):608-616. 4. Jeff CARRILLO, et al. Priyanka Med. 2011;13(11):913-920. 5. ACOG/SMFM Joint Committee Opinion No. 545, Jan 2012. [id number] PLUS PDF . LC_SEQCA INHERITEST(R) C GENETIC COUNSELOR Not applicable LC_EGLMA INHERITEST(R) C SPECIMEN TYPE LC_SOPHY Peripheral Blood INHERITEST(R) C ETHNICITY LC_PATRICIAMA Not Provided INHERITEST(R) C INDICATION: LC_EGLMA Not Provided INHERITEST(R) C RESULTS: Note A LCBRENDA Disease (Gene) Results Interpretation Cystic fibrosis (CFTR) Negative for the These results mutations reduce, but do analyzed not eliminate, the chance to be a carrier. For risk reductions see Information Table. 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 At risk to be a silent carrier (2+0). For ethnic-specific risk revisions see Information Table. Genetic counseling is recommended. INHERITEST(R) C GENERAL COMMENTS Note PAUL Genetic counseling services are available. To access [facility] please visit [email or web address] or call [phone] ([phone]). INHERITEST(R) C ADDITIONAL CLINICAL INFO Note PAUL Cystic fibrosis: Cystic fibrosis (CF) is an autosomal recessive disorder with variable severity and age of onset. Symptoms of classic CF include elevated sweat chloride levels, progressive lung disease, pancreatic insufficiency, and male infertility. Individuals with mild CF may have pancreatic sufficiency. CFTR-related disorders include pancreatitis, bronchiectasis, and isolated male infertility due to congenital absence of the vas deferens. Treatment is primarily dietary and supportive. Genotype-targeted therapies may be available for some individuals. In severely affected individuals, lung transplantation may be indicated. (Yasemin, PMID:[id number]) Spinal muscular atrophy: Spinal muscular atrophy (SMA) is an autosomal recessive neurodegenerative disorder with variable age at onset and severity, characterized by progressive degeneration of the lower motor neurons in the spinal cord and brain stem, leading to muscle weakness, and in its most common form, respiratory failure by age two. Complications of SMA may include poor weight gain, sleep difficulties, pneumonia, scoliosis, and joint deformities. In severely affected individuals, abnormal ultrasound findings may include congenital joint contractures, polyhydramnios, and decreased movement (Lary, PMID:[id number]). Treatment is supportive. Targeted therapies may be available for some individuals. Approximately 94% of affected individuals have 0 copies of the SMN1 gene; in these individuals an increase in the number of copies of the SMN2 gene correlates with reduced disease severity (Valentin, PMID:[id number]). Individuals with one copy of the SMN1 gene are predicted to be carriers of SMA; those with two or more copies have a reduced carrier risk. For individuals with two copies of the SMN1 gene, the presence or absence of the variant c.*3+80T>G correlates with an increased or decreased risk, respectively, of being a silent carrier (2+0) (Willis, PMID [id number]; Aubrey, PMID [id number]). Genetic counseling is recommended to discuss the potential clinical and/or reproductive implications of these results, as well as recommendations for testing family members and, when applicable, this individual's partner. INHERITEST(R) C METHOD/LIMITATIONS Note LC_EGLCO Cystic fibrosis: CFTR gene regions are amplified enzymatically. 97 targeted CF mutations, listed below, are tested by multiplex allele-specific primer extension, bead array hybridization, and fluorescence detection. The test discriminates between p.F619aob and three polymorphisms (p.I506V, p.I507V and p.F508C). Numbering and nomenclature follow Human Genome Variation Society recommendations. The DNA reference sequence is [id number]. Legacy mutation names are available at [email or web address]. Spinal muscular atrophy: The copy number of SMN1 exon 7 is assessed relative to internal standard reference genes by quantitative polymerase chain reaction (qPCR). A mathematical algorithm calculates 0, 1, 2 and 3 copies with statistical confidence. When no copies of SMN1 are detected, the primer and probe binding sites are sequenced to rule out variants that could interfere with copy number analysis and SMN2 copy number is assessed by digital droplet PCR analysis relative to an internal standard reference gene. For carrier screening, when two copies of SMN1 are detected, allelic discrimination qPCR targeting c.*3+80T>G in SMN1 is performed. Limitations: False positive or false negative results may occur for reasons that include genetic variants, blood transfusions, bone marrow transplantation, somatic or tissue-specific mosaicism, mislabeled samples, or erroneous representation of family relationships. 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 SMA risk reductions for individuals with no family history Disorder (Gene) Reference Sequence Spinal Muscular Atrophy (SMN1) [id number] Population Detection Pre-test Post-test risk of Post-test Rate carrier being a carrier risk of (Copy risk with 2 copies being a number + carrier SNP) POSITIVE NEGATIVE with 3 for the for the copies c.*3+80T>G c.*3+80T>G SNP SNP 90.3% 1 in 72 1 in 34 1 in 375 1 in 4200 [place]amese Ashkenazi 92.8% 1 in 67 High risk 1 in 918 1 in 5400 Zoroastrian 93.6% 1 in 59 High risk 1 in 907 1 in 5600 95.0% 1 in 47 1 in 29 1 in 921 1 in 5600 92.6% 1 in 68 1 in 140 1 in 906 1 in 5400 Mixed or For counseling purposes, consider using the other ethnic background with the most ethnic conservative risk estimates background. INHERITEST(R) C DISCLAIMER: Note PAUL This test was developed and its performance characteristics determined by [facility]. It has not been cleared or approved by the Food and Drug Administration. [facility] is a business unit of [employer], a wholly-owned subsidiary of [employer]. [employer]) is a registered service rosemarie of [employer]. Testing performed at [facility], [address] [facility], [place] [address] Niecy Britt, PhD, [facility], Quality Control Lead INHERITEST(R) C PDF . PAUL INHERITEST(R) C DIRECTOR REVIEW Note PAUL Vázquez, Ph.D., [facility] INHERITEST(R) C ORDER REVIEW PAUL URINE CULTURE NOTE [facility] ANT NOTE [facility]PAT[facility] ANT HEPATITIS C AB Non-Reactive Nonreactive ML Non Reactive: < 0.8 Equivocal: >/= 0.8 to < 1.0 Reactive: >/= 1.0 The CDC recommends that a reactive/equivocal HCV antibody result be followed up by the HCV Nucleic Acid Amplification test (520719) HEPATITIS B JONATHAN NOTE [facility] HEPATITIS B JONATHAN HEP B SURF AG Non-Reactive Nonreactive ML HIV - [facility] NOTE [facility] HIV - [facility] HIV Non-Reactive Nonreactive ML L509.8000 NOTE [facility] L509.8000 SYPHILIS ABS Non-reactive ML RUBELLA IGG NOTE [facility] RUBELLA IGG RUBELLA IGG Reactive Nonreactive ML Antibody Results Interpretation of Immune Status Non Reactive Presumed Non-Immune Equivocal Equivocal Reactive Presumed Immune PN N [facility]~[address] [place], [address]~ T AND AB SCREEN GEL NEGATIVE ML URINE DRUG SCRE NOTE [facility] URINE DRUG SCRE VISTA UDS PH 5 ML URINE DRUG SCRE AMPHETAMINES NEGATIVE <1000 ng/mL ML URINE DRUG SCRE BARBITIURATES NEGATIVE < 200 ng/mL ML URINE DRUG SCRE BENZODIAZIPINE NEGATIVE < 200 ng/mL ML URINE DRUG SCRE COCAINE NEGATIVE < 300 ng/mL ML URINE DRUG SCRE ECSTACY NEGATIVE < 500 ng/mL ML URINE DRUG SCRE METHADONE NEGATIVE < 300 ng/mL ML URINE DRUG SCRE OPIATES NEGATIVE < 300 ng/mL ML URINE DRUG SCRE PCP NEGATIVE < 25 ng/mL ML URINE DRUG SCRE THC NEGATIVE < 50 ng/mL ML URINALYSIS, ROU NOTE [facility] URINALYSIS, ROU COLOR Yellow Yellow ML URINALYSIS, ROU URINE CLARITY Clear Clear ML URINALYSIS, ROU GLUCOSE, UR Normal mg/dl Normal ML URINALYSIS, ROU BILIRUBIN URINE Negative mg/dL Negative ML URINALYSIS, ROU KETONE UR 50 mg/dl Negative A ML URINALYSIS, ROU SP.GR. DIPSTX 1.005 1.002-1.030 ML URINALYSIS, ROU PH UR 6.0 5.0 - 8.0 ML URINALYSIS, ROU PROT DIPSTX Negative mg/dl Negative ML URINALYSIS, ROU UROBILI Normal mg/dl Normal ML URINALYSIS, ROU NITRITE Negative Negative ML URINALYSIS, ROU OCCULT BLOOD-UR Negative /ul Negative ML URINALYSIS, ROU LEUK ESTERASE Negative /ul Negative ML THYROID STIM HO NOTE [facility] THYROID STIM HO TSH 0.85 uIU/mL 0.358-3.74 ML CBC W/DIFF, AUT NOTE [facility] CBC W/DIFF, AUT WBC 15.8 K/mm3 4.4-11.0 H ML CBC W/DIFF, AUT RBC 4.52 M/mm3 4.2-5.4 ML CBC W/DIFF, AUT HGB 13.2 g/dL 12.0-15.0 ML CBC W/DIFF, AUT HCT 38.7 37-47 ML CBC W/DIFF, AUT MCV 85.6 fL 81-99 ML CBC W/DIFF, AUT MCH 29.2 pg 27.0-32.0 ML CBC W/DIFF, AUT MCHC 34.1 g/dL 32-36 ML CBC W/DIFF, AUT RDW CV 15.9 11.6-14.6 H ML CBC W/DIFF, AUT RDW SD 49.5 fl 35.1-43.9 H ML CBC W/DIFF, AUT PLT 280 K/mm3 150-450 ML CBC W/DIFF, AUT MPV 11.2 fl 6.2-12.0 ML CBC W/DIFF, AUT NEUT% 77.5 47-70 H ML CBC W/DIFF, AUT LY% 13.2 19-41 L ML CBC W/DIFF, AUT MONO% 6.8 0-10 ML CBC W/DIFF, AUT EO% 1.9 0-5 ML CBC W/DIFF, AUT BASO% 0.3 0-1 ML CBC W/DIFF, AUT IG% 0.300 0.0-0.9 ML IG% - Immature Granulocytes (promyelocytes, myelocytes and metamyelocytes) > 1% indicates that a LEFT SHIFT is Present. CBC W/DIFF, AUT ABSOLUTE NEUT 12.3 X10 3/uL 2.0-7.7 H ML CBC W/DIFF, AUT ABSOLUTE LYMPH 2.09 X10 3/uL 0.83-4.51 ML CBC W/DIFF, AUT NUCLEATED RBC 0 0-5 ML CHLAMYDIA/GC NA NOTE [facility] CHLAMYDIA/GC NA CHLAMY,NUC ACID Negative Negative LCI CHLAMYDIA/GC NA GC BY NUC ACID Negative Negative LCI Performed at: =G - [facility] [address], [place] [id number] [employer]: Yajaira Swift MD, Phone: [phone] == ==== Impression /Plan: 36 wks + 1 days intrauterine with blood sugars out of control. I have discussed the patient's care at length with SUHA Ferreira at [facility]. She will accept the patient in transport and will likely start IV insulin drip and proceed with delivery. I have discussed this with the patient who agrees with this plan. Preparations in progress for delivery.
[2021-04-03 11:46] LABS: Bedside Glucose 131 mg/dL (70-110)
== END 2021-04-03 11:30 | disposition home or self-care (01) ==
LOC: WPOUT 20:47 → WP 20:47
PROVIDERS: PCP Pediatrics; Referring Provider Obstetrics & Gynecology; Visit Provider Obstetrics & Gynecology
DX: O24.414 Gestational diabetes mellitus in pregnancy, insulin controlled (principal); Z3A.36 36 weeks gestation of pregnancy; O99.343 Other mental disorders complicating pregnancy, third trimester; F32.A Depression, unspecified; O99.333 Smoking (tobacco) complicating pregnancy, third trimester; F17.200 Nicotine dependence, unspecified, uncomplicated
CPT/HCPCS: 96365; 96366 ×2; 36415; 59025; 59050; 80053; 81001; 82962; 84112; 85025; 96372; 99218; J7120; A4216; G0378; J7799

== ENCOUNTER 2021-04-11 17:23 | Outpatient (CLI) | payer MEDICAID, SELFPAY | END 2021-04-11 23:59 | disposition home or self-care (01) | PROVIDERS: PCP Pediatrics; Visit Provider Student in an Organized Health Care Education/Training Program | DX: N39.0 Urinary tract infection, site not specified (principal) | CPT/HCPCS: 87086; 87088 ==

== ENCOUNTER 2021-07-07 20:27 | Emergency (ER) | payer MEDICAID, SELFPAY ==
[2021-07-07 20:28] VITALS: BP 121/60; PULSE 86; RESP 15; TEMP 36.6; O2SAT 98; BMI 38.2
--- NOTE | 2021-07-07 20:53 | ED.VIS.LOWEX ---
HPI History of Present Illness HPI Narrative: Presents with left ankle injury that occurred this morning. Patient states she fell down approximately 3 steps after stepping on a toy. Patient states she twisted her ankle but she is unsure exactly which way it twisted. Patient states her pain is over the lateral aspect of the left ankle. Patient denies any paresthesias or weakness. Patient states her pain is worse with any movement or weightbearing. Patient denies any head injury or loss of consciousness. Patient denies any other injuries. Chief Complaint: Lower Extremity Injury Occured/Mechanism Mechanism/Context: Yes fall Onset/Context/Timing Onset: Today Context: Sudden Onset Timing: Continuous Quality of Pain: Sharp Location: Left ankle Worsened by: Weightbearing and ambulation Relieved by: Nothing Associated Symptoms Associated Symptoms: Negative for Parasthesia, Weakness and Loss of Funtion PFSH [facility] Medical History Cancer Home Medications NK 07/07/21 [History Last Taken Unknown] Allergy/AdvReac Type Severity Reaction Status Date / Time No Known Allergies Allergy Verified 07/07/21 20:30 Social History Smoking Status: Current every day smoker tobacco type: cigarettes ROS ROS ED Constitutional Constitutional ED: Denies chills or fever(s) Eyes Eyes: Denies blurry vision or change in vision ENT ENT ED: Denies rhinorrhea or sore throat Cardiovascular Cardiovascular: Denies chest pain or palpitations Respiratory/Chest Respiratory/Chest: Denies cough or dyspnea Gastrointestinal Gastrointestinal: Denies nausea or vomiting Genitourinary Genitourinary ED: Denies dysuria or hematuria Musculoskeletal Musculoskeletal: Denies back pain or neck pain Integumentary Denies abscess or rash Neurologic Neurologic: Denies headache(s) or weakness Allergic/Immunologic Allergic/Immunologic ED: Denies mouth swelling or urticaria EXAM Physical Exam Const Vital Signs: 07/07/21 20:28 Temperature 97.8 F Temperature Source Temporal Pulse Rate 86 Respiratory Rate 15 Blood Pressure 121/60 H Blood Pressure Mean 80 Pulse Ox 98 Oxygen Delivery Method Room Air Positive well nourished, well developed and obese General Appearance ED: well developed and NAD Nutritional Appearance: obese HEENT Reports moist mucous membranes Neck full ROM Extremity Extremity Narrative: There is tenderness over the lateral aspect of the left ankle. There is some mild edema. There is no deformity noted. There is no tenderness over the fifth metatarsal. There is no tenderness over the proximal fibula. Range of motion was slightly limited in all motions of the left ankle secondary to pain. Sensation was intact to light touch in all digits. Capillary refill was less than 2 seconds in all digits. Pedal pulses are equal bilaterally. Neuro oriented x3, CN's II-XII intact bilaterally, moves all extremities and no sensory deficits noted Sensorium / Orientation: alert Motor Exam: strength 5/5 throughout Psych mental status grossly normal MDM MDM MDM Narrative Medical decision making narrative: X-rays of the left ankle were obtained. There are 3 views. On my interpretation, there is no acute fracture. There is no dislocation. There is some mild soft tissue swelling. Radiologist also interpreted the x-rays and agrees. Patient was given an Aircast. Patient was instructed to ice and elevate the left ankle. Patient was instructed to take Tylenol or ibuprofen as needed for pain. Patient was instructed to follow-up with her primary care physician in 5 to 7 days. Patient understood and was agreeable with the plan. All questions were answered. Radiography Diagnostic Testing: Clinical Impression(s) from Imaging Studies Ankle X-Ray 07/07/21 21:00 IMPRESSION: 1. Normal examination of the left ankle. 2. No fractures or dislocations. 3. No arthritic or degenerative changes. 4. Balanced ankle mortise. 5. Minimal soft tissue swelling adjacent to the medial malleolus. Electronically Signed: Nicho Duckworth MD at 21:28 EDT , Discharge Plan Triage Chief Complaint: Lower Extremity Injury ED Provider: Yefri Silva Dx/Rx/DC Orders Clinical Impression: Left ankle sprain, Obesity (BMI 30-39.9) Instructions: ED Ankle Sprain (Adult) Prescriptions: No Action NK RF: 0 Primary Care Provider: Care Physician,No Primary Referrals: Merced Blandon MD [STAFF PHYSICIAN] - 5-7 Days Care Physician,No Primary [Primary Care Provider] - Disposition Disposition: Home, Self Care
--- NOTE | 2021-07-07 21:00 | RAD_ITS ---
STUDY: LEFT ANKLE X-RAY SERIES OF 2058 HOURS ON 07/07/2021 REASON FOR EXAM: 21-year-old female with injury and pain of left ankle. TECHNIQUE: 3 view(s) of the ankle. COMPARISON: 11/26/2014. FINDINGS: No fractures or dislocations. Balanced ankle mortise. No arthritic or degenerative changes. No neoplastic or inflammatory changes. Minimal soft tissue swelling adjacent to the medial malleolus. RAD/Ankle min 3 Views IMPRESSION: 1. Normal examination of the left ankle. 2. No fractures or dislocations. 3. No arthritic or degenerative changes. 4. Balanced ankle mortise. 5. Minimal soft tissue swelling adjacent to the medial malleolus. Electronically Signed: Nicho Duckworth MD at 21:28 EDT ,
== END 2021-07-07 21:44 | disposition home or self-care (01) ==
PROVIDERS: Emergency Provider Emergency Medicine; Visit Provider Emergency Medicine
DX: S93.402A Sprain of unspecified ligament of left ankle, initial encounter (principal); W10.9XXA Fall (on) (from) unspecified stairs and steps, initial encounter; E66.9 Obesity, unspecified; F17.210 Nicotine dependence, cigarettes, uncomplicated
CPT/HCPCS: 73610; 99283

== ENCOUNTER → 2022-08-03 | Outpatient (CLI) | payer MEDICAID, SELFPAY ==
[2022-08-03 11:03] LABS: Absolute Lymphocyte Count 3.22 X10^3/uL (0.83-4.51); Absolute Neutrophil Count 9.4 X10^3/uL (2.0-7.7); Basophil# 0.06 X10^3/uL; Basophil% 0.4 % (0-1); Eosinophil# 0.71 X10^3/uL; Eosinophils% 4.9 % (0-5); Hematocrit 39.7 % (37-47); Hemoglobin 12.8 g/dL (12.0-15.0); Lymphocyte # 3.22 X10^3/ul (0.83-4.51); Mean Corp Hgb Conc 32.2 g/dL (32-36); Mean Corpuscular Volume 86.9 fL (81-99); Mean Platelet Vol. 10.6 fl (6.2-12.0); Monocyte# 1.19 X10^3/uL; Monocyte% 8.1 % (0-10); NRBC Flagged by Analyzer 0 % (0-5); Neutrophil # 9.39 X10^3/uL (2.7-7.7); Neutrophil % 64.2 % (47-70); Platelet Count 326 K/mm3 (150-450); RBC Distribution Width CV 16.8 % (11.6-14.6); RBC Distribution Width SD 52.2 fl (35.1-43.9); Red Blood Count 4.57 M/mm3 (4.2-5.4); White Blood Count 14.6 K/mm3 (4.4-11.0)
[2022-08-03 12:03] LABS: Estradiol 121.4 pg/mL; Follicle Stimulating Hormone 4.6 mIU/mL; T4 Free Direct 0.95 ng/dL (0.76-1.46); Thyroid Stim Hormone (TSH) 4.42 uIU/mL (0.358-3.74)
[2022-08-03 13:38] LABS: Hemoglobin A1c 5.7 % (3.8-5.6)
== END | disposition home or self-care (01) ==
LOC: WOBLAB 10:14
PROVIDERS: Visit Provider Nurse Practitioner Women's Health
DX: N93.9 Abnormal uterine and vaginal bleeding, unspecified (principal)
CPT/HCPCS: 36415; 82670; 83001; 83002; 83036; 84402; 84403; 84439; 84443; 85025

== ENCOUNTER 2022-11-27 22:03 | Emergency (ER) | payer MEDICAID, SELFPAY ==
[2022-11-27 22:04] VITALS: BP 126/71; PULSE 99; RESP 18; TEMP 36.6; O2SAT 100; BMI 92.8
--- NOTE | 2022-11-27 22:23 | EX.ED.GENINJ ---
HPI History of Present Illness Chief Complaint: Laceration [facility] Medical History Cancer Home Medications NK 07/07/21 [History Last Taken Unknown] Allergy/AdvReac Type Severity Reaction Status Date / Time No Known Allergies Allergy Verified 11/27/22 22:06 Social History Smoking Status: Current every day smoker tobacco type: cigarettes EXAM Physical Exam Const Vital Signs: 11/27/22 22:04 Temperature 97.8 F Temperature Source Temporal Pulse Rate 99 Respiratory Rate 18 Blood Pressure 126/71 H Blood Pressure Mean 89 Pulse Ox 100 Oxygen Delivery Method Room Air MDM MDM MDM Narrative Medical decision making narrative: HISTORY OF PRESENT ILLNESS: 22-year-old female here with concern for laceration. She states She developed a laceration on the bottom of her right foot after stepping on a tuna can. REVIEW OF SYSTEMS: Pertinent positives: Laceration Pertinent negatives: [] PHYSICAL EXAM: Nursing triage notes reviewed, Vital signs reviewed Constitutional: please see mdm Extremities: No edema Neuro: Intact sensation L1-S1 dermatomal distributions. Intact 5/5 strength in hip flexion (T12-L3). Knee extension (L2-L4). Ankle dorsiflexion (L4-L5). Ankle plantar flexion (S1). Great toe extension (L5). 2+ patellar and Achilles DTRs. Skin: No rash or lesions noted MEDICAL DECISION MAKING: Chief Complaint: Laceration External records reviewed: Cannot see prior tetanus Factors affecting care: none Social determinants of health: none History obtained from others: none Consults: none [facility] Narrative: Patient was hemodynamically stable, afebrile, nontoxic-appearing. The patient suffered lacerations to the right plantar foot. On exam there was no evidence of foreign bodies. There was no evidence of neurovascular injury. Patient had a normal distal vascular exam, and had intact ROM and sensation. There was also no evidence of tendon injury, with normal distal full range of motion, flexion, extension, abduction, abduction. There is no evidence of local joint space involvement at this time. Wound care applied (irrigation and/or local cleansing solution). Laceration repair was then performed please see procedure note. The patient was given signs and symptoms warnings for infection, such as increasing pain, redness, swelling, associated heat, pus or fever. Patient was given instructions for timely follow-up for removal. Patient agreed with the plan of care Procedure: Laceration repair. The procedure was performed by myself. Indication: Wound repair Risks and benefits: risks, benefits and alternatives were discussed Consent: Consent was obtained. Wound Details: Semicircular/curvilinear laceration to the plantar right foot, no FB noted Anesthesia: 1% lidocaine without epinephrine (verbal consent obtained from patient). Wound prep: Patient was prepped and draped in the usual sterile fashion. Tetanus: Updated today Irrigation Solution: Saline Wound Preparation: Wound was soaked in chlorhexidine and sterile water solution. The wound was explored to its base in a bloodless field. Procedure Description: Applied 7 simple interrupted 5-0 Chromic Gut sutures with close approximation. Patient tolerated the procedure well with no immediate complications The patient and/or family, caregivers express understanding. The patient and/or family, caregivers agrees with the plan. Shared decision making: I will have a discussion with the patient and or visitors regarding risk/benefits of further testing or admission. They will be made aware of of the risk/benefits inherent in this decision they will be given the opportunity to voice understanding. Total critical care time today provided was at least 0 minutes. This excludes separately billable procedures. Critical care time (if documented) is secondary to the patient having high probability of clinically significant/life threatening deterioration in the patient's condition which required my urgent intervention. Impression: 1. Right foot laceration Dispo: Discharge Discharge Plan Triage Chief Complaint: Laceration ED Provider: Jason Araiza Dx/Rx/DC Orders Instructions: ED Laceration, Foot: All Closures Prescriptions: No Action NK Primary Care Provider: Care Physician,No Primary Referrals: Fernando Whyte MD [Med Staff - Credit Analysis Manager] - Activity Restrictions/Additional Instructions: Thank you for trusting us with your care today! Please take Tylenol (2 pills, 650 mg), ibuprofen (2 pills, 400 mg) every 6 hours as needed for pain and fever control. Please keep your wound clean and dry. Please like the wound wet for the first 24 hours. Please use topical antibiotic ointment such as bacitracin or Neosporin as well as peroxide on your wound for the first 24 hours. Please change dressings daily. Please look for signs infection of your wound daily. Please return to the emergency department if your symptoms change or worsen. Specifically you develop redness, increasing pain, white-yellow discharge. These are signs of infection. Please return immediately if the signs develop. Please follow with your primary care physician for further outpatient evaluation and management. Disposition Disposition: Home, Self Care
[2022-11-27] MEDS: Lidocaine 1% (20 ml mdv) 20 ML Vial 5 ML INFILT (23:57)
[2022-11-27] MEDS: Diphth,Pertuss(Acell),Tet Vac 0.5 ML Vial IM (23:57)
== END 2022-11-28 00:19 | disposition home or self-care (01) ==
PROVIDERS: Emergency Provider Emergency Medicine; Visit Provider Emergency Medicine
DX: S91.311A Laceration without foreign body, right foot, initial encounter (principal); F17.210 Nicotine dependence, cigarettes, uncomplicated; W26.8XXA Contact with other sharp object(s), not elsewhere classified, initial encounter; Z23 Encounter for immunization
CPT/HCPCS: 12002; 90715; 99283

== ENCOUNTER 2023-08-20 22:48 | Emergency (ER) | payer MEDICAID, SELFPAY ==
[2023-08-20 22:49] VITALS: BP 184/86; PULSE 97; RESP 16; TEMP 36.1; O2SAT 97; BMI 40.1
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
[2023-08-21 01:42] VITALS: BP 142/78; PULSE 79; RESP 16; TEMP 36.7; O2SAT 97
== END 2023-08-21 01:47 | disposition home or self-care (01) ==
PROVIDERS: Emergency Provider Emergency Medicine; Visit Provider Emergency Medicine
DX: S06.0X0A Concussion without loss of consciousness, initial encounter (principal); F31.9 Bipolar disorder, unspecified; S50.12XA Contusion of left forearm, initial encounter; M54.2 Cervicalgia; V43.62XA Car passenger injured in collision with other type car in traffic accident, initial encounter; J45.909 Unspecified asthma, uncomplicated; F17.210 Nicotine dependence, cigarettes, uncomplicated; Z97.0 Presence of artificial eye
CPT/HCPCS: 70450; 72125; 73090; 99282